=== PATIENT | female | born 1975 | race Caucasian/White ===

== ENCOUNTER 2016-07-16 08:41 | Emergency (ER) | payer SELFPAY ==
[2016-07-16 08:58] VITALS: RESP 18; TEMP 98.6
[2016-07-16] MEDS ORDERED: MORPHINE SULFATE 4 MG/1 ML IVP ONE (09:00)
[2016-07-16] MEDS ORDERED: ONDANSETRON 4 MG/2 ML VIAL IVP ONE (09:01)
[2016-07-16] MEDS ORDERED: ONDANSETRON 4 MG/2 ML VIAL ONE (09:03)
[2016-07-16] MEDS ORDERED: MORPHINE SULFATE 4 MG/1 ML ONE (09:03)
--- NOTE | 2016-07-16 09:07 | PDOC ---
Upper Extremity Problem HPI - General Chief Complaint: Upper Extremity Problem/Injury Stated Complaint: BUCKED OFF HORSE, RIGHT ARM PAIN Date Seen by Provider: 07/16/16 Time Seen by Provider: 09:01 Source: POSITIVE: Patient Exam Limitations: POSITIVE: No limitations Nurse's Notes Reviewed & Considered: Yes - History of Present Illness Initial Comments: Mrs. Tiffanie Mckeon is a 41-year-old woman coming in today this morning with extreme pain to her right upper arm. This morning she was running horse the horse stopped suddenly and reared she was thrown off forward over the top of a horse landing on the ground hitting her right arm. She hit on her elbow, and felt a jolt up to her shoulder. She did not her head, but she did not lose consciousness and she is complaining of no head pain and no neck pain. She has no numbness and no tingling. The pain is located midway between her right shoulder and her right elbow on the right side. She has no pain or tenderness or swelling to her right shoulder or her right elbow. She has taken no pain medicine for this problem thus far. There are no abrasions lacerations or open wounds. She denies any other complaints, with no shortness of breath, no chest pain, no abdominal pain, no nausea or vomiting. - Patient Home Medications Home Medications: Home Medications Hydrocodone/Acetaminophen [Madras 5-325 Tablet] 1 tab PO Q4H PRN #20 tab Ibuprofen [Advil] 600 mg PO Q6H PRN 07/16/16 - Patient Allergies Allergies/Adverse Reactions: Allergies Allergy/AdvReac Type Severity Reaction Status Date / Time No Known Allergies Allergy Unverified 07/16/16 08:49 Past Medical History - heen HEENT History: Denies History Cardiovascular History: Denies History Respiratory History: Denies History Gastrointestinal History: Denies History Genitourinary History: Denies History Endocrine History: Denies History Musculoskeletal History: Denies History Prosthesis or Implant: No Neurological History: Denies History Blood Disorders: Denies History Psychiatric History: Denies History History of Sexually Transmitted Diseases: No Female Reproductive History: Denies History LMP: 07/13/16 Obstetrical History: Denies History Cancer History: Denies History In Past Year Been Physically Harmed or Verbally Threatened: No History of MDRO: No History of Other Communicable Diseases: No Tobacco Use: Current Some Day Smoker Alcohol Use: Occasionally Substance Use Type: None Previous Surgical History: No Significant Family History: No pertinent family hx Past Medical History Reviewed: Reviewed - No Changes ROS - Limitations ROS Limitations: No Limitations Constitution: REPORTS: Denies Symptoms Cardiovascular: REPORTS: Denies Cardiac Symptoms Respiratory: REPORTS: Denies Resp Symptoms Neurological: REPORTS: Denies Neuro Symptoms Gastrointestinal: REPORTS: Denies GI Symptoms Endocrine: REPORTS: Denies Symptoms Musculoskeletal: REPORTS: Recent Injury Genitourinary: REPORTS: Denies Symptoms Eyes: REPORTS: Denies Symptoms ENT: REPORTS: Denies Symptoms Skin: REPORTS: Denies Skin Symptoms Upper Extremity Problem Exam - General Appearance General Appearance: POSITIVE: Alert, Cooperative, Mild Distress - Upper Extremity Upper Extremity: POSITIVE: Other (The right upper extremity is held close to the body, with possible mild deformity to the midpoint of the humerus area. There is no edema swelling erythema or tenderness to the right shoulder joint or the right elbow. She has 2+ pulses to the right radial and right ulnar artery at the wrist and 500 clinical cytogeneticist scientist strength right hand. She avoids active movement of the right upper extremity.) Vascular: POSITIVE: No Vascular Compromise - Skin Skin: POSITIVE: Normal Color, Warm, Dry - Neuro / Psych Peripheral Neuro Exam: POSITIVE: Sensation Normal, Motor Normal Central Neuro Exam: POSITIVE: Oriented to Person, Oriented to Place, Oriented to Time, Normal Speech, Normal Cognition - HEENT HEENT: POSITIVE: Head Inspection Nml, Eyes Inspection Nml, PERRL, EOMI - Neck/Back Neck / Back: POSITIVE: Other (No C-spine tenderness, she has normal neck range of motion) - Respiratory / CVS Respiratory / CVS: POSITIVE: No Respiratory Distress, Breath Sounds Normal, Regular Rate & Rhythm, Heart Sounds Normal Peripheral Pulses: Radial (R): 2+, Radial (L): 2+ - Abdomen Abdomen: Denies Tenderness: (All Quadrants), No Distention: (All Quadrants) Procedure - Procedure Sedation Roving Department Supervisor Applied: Yes Rhythm: Sinus Rhythm Oxygen Delivery Method: Nasal Cannula Continuous Pulse Ox: Yes Patent IV Line (s): Yes Patient Tolerated Procedure: Good Comment: Pt received 35mg ketamine and 35 mg propofol at 10:46. Additional 35mg propofol 10:50. Pt did not respond enough to these doses, still yelling and moving around with tense shoulder muscles. she received 50 mg ketamine and 50 mg propofol at 10:59. she responded to this with relaxation. She had respiratory depression that required a few minutes of bag-mask ventilation, but she recovered from it quickly. I left the room at 11:10 and she was awake and talking. - Reduction Time of Reduction: 11:05 Location of Reduction:: Right shoulder Pre-Proc Neuro Vasc Exam: Normal Conscious Sedation: Yes (as above) Reduction Attempts: 2 (Pt did not have adequate response to sedation after first doses, reducction successful after 2nd attempt) Post Joint Reduction Film: Joint Reduced Post Reduction Neuro Vasc Exam: POSITIVE: Normal Sling Applied / Immobilizer Applied: Yes Upper Ext Problem Progress - Results Reviewed by me Xrays/CTs/US Reviewed by me: Yes Radiology Findings: no fracture. There was a posterior dislocation to the right shoulder joint. Post-reduction Xray showed successful reduction of the dislocation Lab Results:: Laboratory Results 07/16/16 Range/Units 09:04 WBC 11.52 H (4.8-10.8) 10^3/uL RBC 4.57 (4.20-5.40) 10^6/uL Hgb 13.7 (12.0-16.0) g/dL Hct 41.4 (37.0-47.0) % MCV 90.6 (81-99) FL MCH 30.0 (27-31) PG MCHC 33.1 (33-37) g/dL RDW Std Deviation 45.2 (39-50) fL RDW Coeff of Wilils 13.9 (11.5-14.5) % Plt Count 369 H (140-350) 10*3/uL MPV 9.8 (7.4-12.2) FL Immature Gran % (Auto) 0.2 (0-5) % Neut % (Auto) 87.2 H (50-80) % Lymph % (Auto) 6.8 L (10-50) % Dane % (Auto) 5.2 (5-15) % Eos % (Auto) 0 (0-8) % Baso % (Auto) 0.6 (0-1) % Immature Gran # (Auto) 0.02 10*3/UL Neut # (Auto) 10.05 10*3/UL Lymph # (Auto) 0.78 10*3/uL Dane # (Auto) 0.60 (0.3-0.8) 10*3/UL Eos # (Auto) 0 10*3/UL Baso # (Auto) 0.07 10*3/UL WBC Morphology Comment Normal morphology (NORM) Plt Morphology Comment Normal morphology (NORM) RBC Morph Comment Normal morphology (NORM) Sodium 140 (135-145) meq/L Potassium 3.9 (3.8-5.2) meq/L Chloride 107 (98-112) meq/L Carbon Dioxide 20 L (23-33) meq/L Anion Gap 13 (5-20) BUN 17 (7-22) mg/dL Creatinine 0.7 (0.50-1.20) mg/dL Estimated GFR > 60 (>60 ml/min/1.73m(2)) BUN/Creatinine Ratio 24.28 H (6-20) Glucose 115 H (78-110) mg/dL Calculated Osmolality 292.0 (267-292) mOsm/kg Calcium 9.4 (8.7-10.7) mg/dL - Patient's Progress Re-Examine Time:: 10:45 Re-Examine Comment: Pt updated on the dislocation. Got morphine for pain, then toradol after the Xrays came back showing no fracture. Initial attempt at reduction caused too much pain, pt decided to undergo procedural sedation prior to next attempt Re-Examine Time: 11:10 Re-Examine Comment: Procedure complete, pt awake and talking, still feeling groggy, pain is better Re-examine Time: 13:12 Re-Examine Comment: Pt able to walk without problem. Ate food without problem. OK for dc with follow up in ortho clinic within 7 days. Patient Care Time - Estimated PCT Patient Care Time (In Minutes): 60 Vital Signs - Recent Vital Signs Vital Signs: Vital Signs (Last 8 hours) Temp Pulse Resp BP Pulse Ox 07/16/16 08:52 98.6 F 82 18 168/89 99 - VS Reviewed Vital Signs Reviewed: Yes Discharge Clinical Impression: Dislocation of shoulder joint Discharge Disposition: Discharged to Home Condition: Stable Prescriptions / Orders: Hydrocodone/Acetaminophen [Madras 5-325 Tablet] 1 tab PO Q4H PRN #20 tab PRN Reason: Breakthrough Pain Patient Instructions Given at Discharge: Shoulder Dislocation (ED) Additional Instructions: Take 800 mg of ibuprofen 3 times a day. Take the Madras at night for additional pain control and to help sleep. Leave the shoulder immobilizer in place until he is able follow up with orthopedic clinic. [facility] orthopedics is here in [place], they can be reached at . you can also try [facility] over in [place], their number is . You are not to ride a horse until you have met with an orthopedic surgeon for a re-examination of your shoulder. Follow Up With: NONE,NONE [Primary Care Provider] - CLAUDIA ALEJANDRO [STAFF PHYSICIAN] -
[2016-07-16 09:09] LABS: BASOPHILS # (AUTO) 0.07 10*3/UL; BASOPHILS % (AUTO) 0.6 % (0-1); EOSINOPHILS # (AUTO) 0 10*3/UL; EOSINOPHILS % (AUTO) 0 % (0-8); HEMATOCRIT 41.4 % (37.0-47.0); HEMOGLOBIN 13.7 g/dL (12.0-16.0); LYMPHOCYTES # (AUTO) 0.78 10*3/uL; MEAN CORPUSCULAR HGB CONC 33.1 g/dL (33-37); MEAN CORPUSCULAR VOLUME 90.6 FL (81-99); MEAN PLATELET VOLUME 9.8 FL (7.4-12.2); MONOCYTES % (AUTO) 5.2 % (5-15); NEUTROPHILS # (AUTO) 10.05 10*3/UL; NEUTROPHILS % (AUTO) 87.2 % (50-80); RED BLOOD COUNT 4.57 10^6/uL (4.20-5.40)
[2016-07-16] MEDS ORDERED: Sodium Chloride 0.9% 1,000 ML PRIMARY IV ONE (09:09)
[2016-07-16 09:20] LABS: PLATELET MORPHOLOGY COMMENT NORMAL MORPHOLOGY (NORM); RBC MORPHOLOGY COMMENT NORMAL MORPHOLOGY (NORM); WBC MORPHOLOGY COMMENT NORMAL MORPHOLOGY (NORM)
[2016-07-16 09:32] LABS: BLOOD UREA NITROGEN 17 mg/dL (7-22)
[2016-07-16 09:34] LABS: BUN/CREATININE RATIO 24.28 (6-20); CALCIUM 9.4 mg/dL (8.7-10.7); EST GLOMERULAR FILTRATION > 60 (>60 ml/min/1.73m(2))
--- NOTE | 2016-07-16 09:46 | DI ---
RIGHT HUMERUS, 07/16/2016 9:00 AM: Clinical History: Trauma. Previous Exam: None at this facility. AP and lateral views are submitted. There is posterior dislocation of the humeral head. There is no a ssociated fracture of the humerus. The visualized portions of the right lung are normal. Reading: Posterior dislocation of the humeral head.
[2016-07-16] MEDS ORDERED: KETOROLAC 15 MG/1 ML VIAL IVP ONE (09:49)
[2016-07-16] MEDS ORDERED: KETAMINE 100 MG/1 ML - 5 ML ONE (10:29)
--- NOTE | 2016-07-16 11:39 | DI ---
RIGHT SHOULDER, 07/16/2016 10:48 AM: Clinical History: Dislocated shoulder. Status post reduction. Previous Exam: 07/16/2016, at 0917 hours. 2 views are submitted. The posterior dislocation has been reduced. There is no fracture visualized. Reading: Status post reduction of the posterior dislocation. There is no fracture component.
[2016-07-16] MEDS ORDERED: NORMAL SALINE 10 ML SYRINGE FLUSH IVP PRN (12:03)
[2016-07-16] MEDS ORDERED: Sodium Chloride 0.9% 1,000 ML ONE (17:50)
== END 2016-07-16 13:24 | disposition home or self-care (01) ==
LOC: ER 08:41
DX: S43.024A Posterior dislocation of right humerus, initial encounter (principal); M25.521 Pain in right elbow; V80.010A Animal-rider injured by fall from or being thrown from horse in noncollision accident, initial encounter
CPT/HCPCS: 23655 ×2; 73030; 73060; 80048; 85025; 96374; 96375; 99283; 99284; J2704; J1885; J2270; J2405; J7030